=== PATIENT | male | born 1965 | race Caucasian/White ===

== ENCOUNTER → 2016-11-12 | Outpatient (CLI) | payer OTHER | LOC: CIMAGING 12:51 | PROVIDERS: ATTEND Family Medicine | DX: J45.909 Unspecified asthma, uncomplicated (principal) | CPT/HCPCS: 71020-PO ==

== ENCOUNTER → 2016-12-04 | Outpatient (CLI) | payer OTHER | LOC: CIMAGING 15:09 | PROVIDERS: ATTEND Family Medicine | DX: J45.909 Unspecified asthma, uncomplicated (principal) | CPT/HCPCS: 71020-PO ==

== ENCOUNTER 2016-12-25 12:07 | Emergency (ER) | payer MEDICAID, OTHER ==
[2016-12-25 12:12] VITALS: RESP 16; TEMP 97.7; O2SAT 94
--- NOTE | 2016-12-25 12:31 | CPEKG ---
Heart Rate: 66 RR Interval: 909 P-R Interval: 188 QRSD Interval: 76 QT Interval: 412 QTC Interval: 432 P [place]: 61 QRS [place]: -1 T Wave [place]: 74 EKG Severity - BORDERLINE ECG - EKG Impression: SINUS RHYTHM EKG Impression: BORDERLINE T WAVE ABNORMALITIES Electronically Signed By: Aramis Lyn 31-Dec-2016 12:49:40
[2016-12-25 12:45] LABS: % IMMATURE GRANULYOCYTES 0.5 % (0.0-1.1); ABSOLUTE IMMATURE GRANULOCYTES 0.03 10^3/uL (0.00-0.10); ADD DIFF? NO; ADD MORPH? NO; ADD SCAN? NO; ATYPICAL LYMPHOCYTE FLAG 10 (0-99); FRAGMENT RBC FLAG 0 (0-99); HEMATOCRIT 44.3 % (40.0-51.0); HEMOGLOBIN 14.8 g/dL (13.7-17.5); LEFT SHIFT FLG 0 (0-99); LIPEMIA HEMOLYSIS FLAG 80 (0-99); MEAN CELL HEMOGLOBIN 30.3 pg (27.9-34.1); MEAN CELL HEMOGLOBIN CONCENTR. 33.4 g/dL (32.4-36.7); MEAN CELL VOLUME 90.6 fL (81.5-99.8); PLATELET CLUMPS FLAG 0 (0-99); PLATELET COUNT 198 10^3/uL (150-400); RED BLOOD CELL COUNT 4.89 10^6/uL (4.40-6.38); RED CELL DISTRIBUTION WIDTH 13.2 % (11.5-15.2)
--- NOTE | 2016-12-25 12:54 | EDPHY ---
H & P Stated Complaint: I feel like i still have pne Resp diff Time Seen by Provider: 12/25/16 12:43 HPI/ROS: CHIEF COMPLAINT: Dyspnea HISTORY OF PRESENT ILLNESS: The patient presents to the ED with complaints of dyspnea. The patient was treated for a pneumonia approximately 1 and 1/2 weeks ago with Levaquin. The patient did have symptoms the with cough and wheezing at that point time. He is also been using albuterol. He has been off antibiotics for a week. The patient reports he has had symptoms of dyspnea only over the past several days. He does endorse symptoms of mild right pleuritic chest pain. The patient denies asymmetric calf pain or swelling. The patient has no prior history of PE or DVT. The patient does not smoke. REVIEW OF SYSTEMS: A comprehensive 10 point review of systems is otherwise negative aside from elements mentioned in the history of present illness. 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 - Social History Smoking Status: Never smoked - Physical Exam Exam: General Appearance: Alert, no distress Eyes: Pupils equal and round no pallor or injection ENT, Mouth: Mucous membranes moist Respiratory: Scant expiratory wheezing Cardiovascular: Regular rate and rhythm Gastrointestinal: Abdomen is soft and nontender, no masses, bowel sounds normal Neurological: A&O, normal motor function, normal sensory exam, normal cranial nerves Skin: Warm and dry, no rashes Musculoskeletal: Neck is supple nontender Extremities: symmetrical, full range of motion Constitutional: Initial Vital Signs Temperature (C) 36.5 C 12/25/16 12:10 Heart Rate 65 12/25/16 12:10 Respiratory Rate 16 12/25/16 12:10 Blood Pressure 122/79 H 12/25/16 12:10 O2 Sat (%) 94 12/25/16 12:10 O2 Delivery Mode Room Air Allergies/Adverse Reactions: cefaclor [From [facility]] Allergy (Severe, Verified 03/28/15 15:30) Penicillins Allergy (Severe, Verified 03/28/15 15:30) Hives ciprofloxacin [From Cipro] Allergy (Verified 03/28/15 15:30) Abdominal Cramping ciprofloxacin HCl [From Cipro] Allergy (Verified 03/28/15 15:30) Abdominal Cramping Sulfa (Sulfonamide Antibiotics) Allergy (Verified 03/28/15 15:30) Hives Home Medications: Medication Instructions Recorded Pravastatin Sodium 20 mg PO HS 04/25/12 Gemfibrozil 01/29/14 Multivitamin [Multi-Vitamin Daily] 03/07/14 Escitalopram Oxalate [Lexapro 10 03/28/15 MG] IMITREX 02/28/16 Medical Decision Making - Diagnostics Imaging Results: Imaging Impressions Chest X-Ray 12/25/16 12:37 Impression: Mild central bronchitis, stable.. ED Course/Re-evaluation: The patient presents to the ED with dyspnea and mild wheezing. The patient's chest x-ray demonstrates no evidence of an obvious pneumonia. The patient has a negative D-dimer which I feel adequately excludes pulmonary embolism. The patient has a normal EKG and negative cardiac enzymes. The patient otherwise has stable vital signs. Patient was observed in the emergency department. At this point time I will prescribe him a short course of prednisone to see if that improves have symptoms of dyspnea. The patient has been advised to follow up with his regular primary care provider. He should return to the ED for markedly worsening symptoms or other concerns. Differential Diagnosis: Differential diagnosis considered includes asthma, bronchitis, pneumonia - Data Points Laboratory Results: Laboratory Results 12/25/16 12:37 12/25/16 12:37 12/25/16 12/25/16 12/25/16 12:53 12:37 12:37 WBC 5.65 10^3/uL 10^3/uL (3.80-9.50) RBC 4.89 10^6/uL 10^6/uL (4.40-6.38) Hgb 14.8 g/dL g/dL (13.7-17.5) Hct 44.3 % % (40.0-51.0) MCV 90.6 fL fL (81.5-99.8) MCH 30.3 pg pg (27.9-34.1) MCHC 33.4 g/dL g/dL (32.4-36.7) RDW 13.2 % % (11.5-15.2) Plt Count 198 10^3/uL 10^3/uL (150-400) MPV 11.0 fL fL (8.7-11.7) Neut % (Auto) 46.6 % % (39.3-74.2) Lymph % (Auto) 35.8 % % (15.0-45.0) [place] % (Auto) 12.7 % % (4.5-13.0) Eos % (Auto) 3.5 % % (0.6-7.6) Baso % (Auto) 0.9 % % (0.3-1.7) Nucleat RBC Rel Count 0.0 % % (0.0-0.2) Absolute Neuts (auto) 2.63 10^3/uL 10^3/uL (1.70-6.50) Absolute Lymphs (auto) 2.02 10^3/uL 10^3/uL (1.00-3.00) Absolute Monos (auto) 0.72 10^3/uL 10^3/uL (0.30-0.80) Absolute Eos (auto) 0.20 10^3/uL 10^3/uL (0.03-0.40) Absolute Basos (auto) 0.05 10^3/uL 10^3/uL (0.02-0.10) Absolute Nucleated RBC 0.00 10^3/uL 10^3/uL (0-0.01) Immature Gran % 0.5 % % (0.0-1.1) Immature Gran # 0.03 10^3/uL 10^3/uL (0.00-0.10) D-Dimer < 0.27 ug/mLFEU ug/mLFEU (0.00-0.50) Sodium 139 mEq/L mEq/L (134-144) Potassium 4.8 mEq/L mEq/L (3.5-5.2) Chloride 107 mEq/L mEq/L (97-110) Carbon Dioxide 23 mEq/l mEq/l (22-31) Anion Gap 9 mEq/L mEq/L (8-16) BUN 30 mg/dL H mg/dL (7-23) Creatinine 1.2 mg/dL mg/dL (0.7-1.3) Estimated GFR > 60 Glucose 80 mg/dL mg/dL (70-100) Calcium 9.6 mg/dL mg/dL (8.5-10.4) Troponin I < 0.012 ng/mL ng/mL (0-0.034) Departure - Departure Disposition: Home, Routine, Self-Care Clinical Impression: Acute bronchitis Condition: Good Instructions: Bronchospasm (ED) Additional Instructions: 1. Continue to use inhaler every 4 hours as needed for shortness of breath. 2. Please take prednisone as directed. 3. Please follow up with your primary care provider for a recheck in the next 3- 4 days. 4. Please return to the ED immediately for worsening shortness of breath, difficulty breathing or other concerns. Referrals: Ariel Holden DO [Primary Care Provider] - As per Instructions
[2016-12-25 12:58] LABS: ANION GAP 9 mEq/L (8-16); CALCIUM 9.6 mg/dL (8.5-10.4); CARBON DIOXIDE 23 mEq/l (22-31); CHLORIDE 107 mEq/L (97-110); CREATININE 1.2 mg/dL (0.7-1.3); GLOMERULAR FILTRATION RATE > 60; GLUCOSE 80 mg/dL (70-100); POTASSIUM 4.8 mEq/L (3.5-5.2); SODIUM 139 mEq/L (134-144)
[2016-12-25 13:09] LABS: TROPONIN I < 0.012 ng/mL (0-0.034)
[2016-12-25 14:34] VITALS: BP 115/60; PULSE 68
== END 2016-12-25 14:34 | disposition home or self-care (01) ==
DX: J20.9 Acute bronchitis, unspecified (principal)

== ENCOUNTER → 2017-08-12 | Outpatient (CLI) | payer MEDICAID | LOC: CIMAGING 14:28 | PROVIDERS: ATTEND Family Medicine | DX: J98.4 Other disorders of lung (principal); R50.9 Fever, unspecified | CPT/HCPCS: 71046-PO ==

== ENCOUNTER → 2017-12-09 | Outpatient (CLI) | payer MEDICAID | LOC: CLAB 16:18 | PROVIDERS: ATTEND Family Medicine | DX: R10.31 Right lower quadrant pain (principal) | CPT/HCPCS: 76705-PO ==

== ENCOUNTER 2018-04-11 16:39 | Emergency (ER) | payer MEDICAID ==
--- NOTE | 2018-04-11 17:37 | EDPHY ---
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 Tetanus up-to-date. SOCIAL HISTORY: Denies alcohol or drug use PHYSICAL EXAM (Prior to examination, patient consented to physical exam, hands were washed and my usual and customary physical exam procedures followed) 1) GENERAL: Well-developed, well-nourished, alert and oriented. Appears to be in no acute distress. 2) HEAD: Normocephalic, atraumatic 3) HEENT: Pupils equal, round, reactive to light bilaterally. Sclera anicteric. 4) NECK: Full range of motion, no meningeal signs. 5) LUNGS: Clear auscultation bilaterally, no wheezes, no rhonchi, no retractions. 6) HEART: Regular rate and rhythm, no murmur, no heave, no gallop. 7) ABDOMEN: No guarding, no rebound, no focal tenderness, negative McBurney's, negative Joseph's, negative Rovsing's, negative peritoneal sign, 8) MUSCULOSKELETAL: Right upper extremity: Volar wrist puncture wound pen hoda. Did not break the skin. Radial ulnar median nerve function intact. Radial and ulnar are pulses brisk. Not through and through. No signs of infection. 9) BACK: No CVA tenderness, no midline vertebral tenderness, no fluctuance, no step-off, no obvious trauma, no visual or palpable abnormality. 10) SKIN: No rash, no petechiae. 11) Psychiatric: Patient is oriented X 3, there is no agitation. DIFFERENTIAL DIAGNOSIS: In no particular order including but not limited to suicidal ideation, homicidal ideation, depression (Guy,Neelam Ami) Constitutional: Initial Vital Signs Temperature (C) 36.8 C 04/11/18 16:51 Heart Rate 78 04/11/18 16:51 Respiratory Rate 18 04/11/18 16:51 Blood Pressure 115/86 H 04/11/18 16:51 O2 Sat (%) 94 04/11/18 16:51 O2 Delivery Mode Room Air Allergies/Adverse Reactions: cefaclor [From Ceclor] Allergy (Severe, Verified 04/11/18 16:50) Penicillins Allergy (Severe, Verified 04/11/18 16:50) Hives ciprofloxacin [From Cipro] Allergy (Verified 04/11/18 16:50) Abdominal Cramping ciprofloxacin HCl [From Cipro] Allergy (Verified 04/11/18 16:50) Abdominal Cramping Sulfa (Sulfonamide Antibiotics) Allergy (Verified 04/11/18 16:50) Hives Home Medications: Medication Instructions Recorded Atorvastatin Calcium 04/11/18 buPROPion 04/11/18 Medical Decision Making ED Course/Re-evaluation: 2121: (Faustino Dove) 5:36 p.m.: Patient sources suicidal ideation and suicide attempt by attempting to stab is volar wrist with a pen. The puncture wound itself will heal via secondary intention, non through and through with no neurovascular deficits. I am placing the patient on M1 hold as he states that if he leaves the ER he will attempt to kill himself by means as of yet unknown. 11:11 p.m.: Patient has been evaluated by mental health diving supervisor, does not feel that the patient meets criteria for admission. He is epi for safety and states that his prior suicidal ideations of now resolved. The mental health diving supervisor has consulted with on-call psychiatrist and they recommended vacated the M1 hold which has been vacated. 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 I have left a request for the behavioral health case manager to contact the patient and his sister in the morning. (Neelam Tovar) - Data Points Laboratory Results: Laboratory Results 04/11/18 17:35 04/11/18 17:35 04/11/18 04/11/18 04/11/18 17:40 17:35 17:35 WBC 6.12 10^3/uL 10^3/uL (3.80-9.50) RBC 5.25 10^6/uL 10^6/uL (4.40-6.38) Hgb 15.8 g/dL g/dL (13.7-17.5) Hct 46.9 % % (40.0-51.0) MCV 89.3 fL fL (81.5-99.8) MCH 30.1 pg pg (27.9-34.1) MCHC 33.7 g/dL g/dL (32.4-36.7) RDW 13.2 % % (11.5-15.2) Plt Count 214 10^3/uL 10^3/uL (150-400) MPV 11.3 fL fL (8.7-11.7) Neut % (Auto) 65.8 % % (39.3-74.2) Lymph % (Auto) 22.9 % % (15.0-45.0) [place] % (Auto) 8.8 % % (4.5-13.0) Eos % (Auto) 1.5 % % (0.6-7.6) Baso % (Auto) 0.5 % % (0.3-1.7) Nucleat RBC Rel Count 0.0 % % (0.0-0.2) Absolute Neuts (auto) 4.03 10^3/uL 10^3/uL (1.70-6.50) Absolute Lymphs (auto) 1.40 10^3/uL 10^3/uL (1.00-3.00) Absolute Monos (auto) 0.54 10^3/uL 10^3/uL (0.30-0.80) Absolute Eos (auto) 0.09 10^3/uL 10^3/uL (0.03-0.40) Absolute Basos (auto) 0.03 10^3/uL 10^3/uL (0.02-0.10) Absolute Nucleated RBC 0.00 10^3/uL 10^3/uL (0-0.01) Immature Gran % 0.5 % % (0.0-1.1) Immature Gran # 0.03 10^3/uL 10^3/uL (0.00-0.10) Sodium 138 mEq/L mEq/L (135-145) Potassium 4.4 mEq/L mEq/L (3.3-5.0) Chloride 108 mEq/L mEq/L (97-110) Carbon Dioxide 21 mEq/l L mEq/l (22-31) Anion Gap 9 mEq/L mEq/L (6-14) BUN 23 mg/dL mg/dL (7-23) Creatinine 1.0 mg/dL mg/dL (0.7-1.3) Estimated GFR > 60 Glucose 103 mg/dL H mg/dL (70-100) Calcium 9.9 mg/dL mg/dL (8.5-10.4) Salicylates 2.3 mg/dL mg/dL (2.0-20.0) Urine Opiates Screen NEGATIVE (NEGATIVE) Acetaminophen < 10 mcg/mL L mcg/mL (10-30) Urine Barbiturates NEGATIVE (NEGATIVE) Ur Phencyclidine Scrn NEGATIVE (NEGATIVE) Ur Amphetamine Screen NEGATIVE (NEGATIVE) U Benzodiazepines Scrn NEGATIVE (NEGATIVE) Urine Cocaine Screen NEGATIVE (NEGATIVE) U Marijuana (THC) Screen NEGATIVE (NEGATIVE) Ethyl Alcohol < 10 mg/dL mg/dL (0-10) Departure - Departure Disposition: Home, Routine, Self-Care Clinical Impression: Stress Condition: Good Instructions: Stress (ED) Additional Instructions: Return to the ER immediately if you experience thoughts of hurting yourself, thoughts of hurting other people, thoughts of killing other people or killing yourself. Referrals: Ariel Holden, [Primary Care Provider] - 2-3 days, call for appt. Stand Alone Forms: Work Excuse
[2018-04-11 17:58] LABS: PLATELET COUNT 214 10^3/uL (150-400)
--- NOTE | 2018-04-11 22:24 | ASMTLCPROG ---
Notes Note: Notes: Will consult with case management tomorrow regarding pt. Sister Christin [phone] is his legal guardian. Date Signed: 04/11/2018 10:12 PM Electronically Signed By:Kathleen French
[2018-04-11 23:38] VITALS: BP 121/76
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
--- NOTE | 2018-04-12 00:03 | ASMTTCLDSP ---
TLC Discharge Disposition Disposition: Answers: Discharge If Answers: Yes DISCHARGED: Patient/family given suicide hotline info & SAMHSA brochure? Disposition Notes: Notes: Case Management will follow-up with pt tomadamrw. Pt was given resources to [facility] and encouraged to call for an intake appt. Discharge Concerns/Recommendations: Notes: In consultation with [facility] ED physician, Karla Lugo MD, and Trion Dawson MD concurred that pt does not appear to meet 27-65 criteria requiring psychiatric hospitalization as pt does not appear to be an imminent risk of harm to self/others/gravely disabled due to a mental illness condition. Psychiatrist vacating M1 Trino Dawson MD Hold: Date and time M1 hold 04/12/2018 11:00 PM vacated (time format is hh:mm): Type of Hold: Answers: M1/72-hour Hold Hold initiated by: Answers: ED Physician Date Signed: 04/12/2018 12:02 AM Electronically Signed By:Kathleen French
--- NOTE | 2018-04-12 13:11 | ASMTCMCOM ---
CM Note CM Note Notes: Received a request from ED Provider who saw pt during 04/11/18 visit outside of regular CM hours. Requested to follow-up w/pt regarding living situation. This CM called pt's PCP Dr Ariel Holden w/[facility] ([phone]) and spoke w/Jennifer Eller ([phone]) RN Inside Sales Advisor at [facility]. Jennifer states she and/or their Behavioral Health Specialist will contact patient and see about pt getting in for a follow-up appt and to also discuss pt's living situation. CM available for further assistance if needed. Date Signed: 04/12/2018 01:10 PM Electronically Signed By:Kinza Gonzales RN
== END 2018-04-11 23:38 | disposition home or self-care (01) ==
LOC: EEVIPCON 16:39
DX: T14.91XA Suicide attempt, initial encounter (principal); S61.531A Puncture wound without foreign body of right wrist, initial encounter; F43.9 Reaction to severe stress, unspecified; X78.9XXA Intentional self-harm by unspecified sharp object, initial encounter; Y92.9 Unspecified place or not applicable; Y93.9 Activity, unspecified; Y99.9 Unspecified external cause status
CPT/HCPCS: 80305; G0480

== ENCOUNTER → 2018-08-31 | Outpatient (CLI) | payer MEDICAID ==
[~2018-08-31] MED LIST: GADOBUTROL 10 ML VIAL IVP ONE
== END ==
LOC: FIMAGING 07:33
PROVIDERS: ATTEND Psychiatry & Neurology Neurology
DX: G43.109 Migraine with aura, not intractable, without status migrainosus (principal)
CPT/HCPCS: A9585